=== PATIENT | female | born 1985 | race Caucasian/White ===

== ENCOUNTER 2018-08-15 11:58 | Emergency (ER) | payer OTHER ==
[~2018-08-15] VITALS: Ht 162.6 cm; Wt 50.5 kg
[2018-08-15 12:06] VITALS: Ht 162.6 cm; Wt 50.5 kg
[2018-08-15] MEDS ORDERED: ACET325T33 PO (13:14)
[2018-08-15] MEDS ORDERED: DIAZ5TAB PO (13:14)
[2018-08-15 13:26] VITALS: BP 99/63; PULSE 72; RESP 20
[2018-08-15] MEDS ORDERED: CYCLOBENZAPRINE 10 MG TAB PO ONE (13:30)
--- NOTE | 2018-08-15 13:32 | ERD ---
ER Documentation Chief Complaint Chief Complaint stiff neck with headache x 1 day HPI 33-year-old female presenting with stiff neck and headache x1 day. The patient denies any fever chills body aches. The patient denies any recent travel. The patient states the pain began when she was cooking yesterday. The patient states that the pain did not wake her up in the middle the night. But her neck still feels stiff. She states the pain is worse when she turns her head side to side feels like the back of her neck gets tight. The patient denies any cough, runny nose, sore throat. Patient denies any traumatic injury. 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 ROS All systems reviewed and are negative except as per history of present illness. Medications Home Meds Active Scripts Acetaminophen* (Tylenol*) 325 Mg Tablet, 2 TAB PO Q6 PRN for PAIN AND OR ELEVATED TEMP, #20 TAB Prov:VIVIANE MICHAELS PA-C 08/15/18 Diazepam* (Valium*) 5 Mg Tablet, 5 MG PO Q8, #10 TAB Prov:VIVIANE MICHAELS PA-C 08/15/18 Allergies Allergies: Coded Allergies: No Known Allergy (Unverified , 08/15/18) PMhx/Soc Medical and Surgical Hx: pt denies Medical Hx, pt denies Surgical Hx Hx Alcohol Use: No Hx Substance Use: No Hx Tobacco Use: No Smoking Status: Never smoker FmHx Family History: No diabetes, No coronary disease, No other Physical Exam Vitals Vital Signs Date Temp Pulse Resp B/P (MAP) Pulse Ox O2 O2 Flow FiO2 Time Delivery Rate 08/15/18 98.2 72 20 99/63 (75) 100 Room Air 13:26 08/15/18 99.1 86 18 110/59 99 12:06 (76) Physical Exam Const: No acute distress Head: Atraumatic Eyes: Normal Conjunctiva ENT: Normal External Ears, Nose and Mouth. Neck: Full range of motion. Patient is able to touch chin to chest without difficulty. No meningismus. Patient has notable muscle tension to the right side of her neck muscles on palpation, no bony masses felt, no crepitus. Patient's pain is provoked when she turns her head to left and right side. Resp: Clear to auscultation bilaterally Cardio: Regular rate and rhythm, no murmurs Results 24 hrs Current Medications Medications Dose Sig/Brandi Start Time Status Last (Trade) Ordered Route PRN Stop Time Admin Dose Reason Admin 10 mg ONCE ONCE 08/15/18 DC 08/15/18 Cyclobenzapri PO 13:30 08/15/18 13:24 ne HCl 13:31 (Flexeril) Procedures/MDM Medications given in ER: Cyclobenzaprine Patient tolerated medication well with no adverse reactions. Patient reported improvement in pain. Medical decision makin-year-old female complaining of neck stiffness x1 day. Patient denies fever chills body aches. Patient states she has had no recent travels and no one is sick in the house. Patient is able to touch her chin to her chest. Physical exam of eyes ears nose and throat was unremarkable. Palpation revealed the [place] has some muscle spasm. Patient's pain is provoked when she turns her head from left to right. Patient has no radiculopathy symptoms. Patient denies any allergies to medications. Patient was given cyclobenzaprine 10 mg in the ER and tolerated it well. When reevaluated patient states that symptoms have improved. At the time of discharge I have low suspicion for epiglottitis, fracture, meningitis, infection,CVA, TIA, intracranial hemorrhage, meningitis, encephalitis, CO poisoning, temporal arteritis, benign intracranial hypertension, intracranial mass, glaucoma, preeclampsia, sinusitis, tension headache, migraine headache, cluster headache. The patient was advised that if symptoms worsen or she develops elevated temperature extreme pain in her head blurry vision to return to ER immediately. Patient was advised she should follow-up with her primary care provider within 1 to 2 days regarding this visit. Patient is being sent home with prescription for Valium and acetaminophen for pain and muscle tension. I discussed with the patient's side effects of this medication advised that she cannot drive or operate heavy machinery. At the medications may make you feel drowsy and that she should only take it at night when needed. Patient had no further questions upon discharge and is in agreement the treatment plan Prescription for home: Valium Acetaminophen Discharge: At this time, patient is stable for discharge and outpatient management. I have instructed the patient to follow-up with his\her primary care physician in 1 to 2 days. I have discussed with the patient the possibility of needing to see a specialist for further work-up and imaging studies if symptoms persist. I have instructed the patient to promptly return to the ER for any new or worsening symptoms including increased pain, fever, nausea, vomiting, weakness or LOC. The patient and\or family expressed understanding of and agreement with this plan. All questions were answered. Home care instructions were provided. Disclaimer: Inadvertent spelling and grammatical errors are likely due to EHR\dictation software use and do not reflect on the overall quality of patient care. Also, please note that the electronic time recorded on the note does not necessarily reflect the actual time of the patient encounter. Departure Diagnosis: Primary Impression: Muscle spasm Additional Impression: Headache Headache type: unspecified Headache chronicity pattern: unspecified pattern Intractability: not intractable Qualified Codes: R51 - Headache Condition: Stable Patient Instructions: Muscle Spasm Referrals: [facility] YOU HAVE RECEIVED A MEDICAL SCREENING EXAM AND THE RESULTS INDICATE THAT YOU DO NOT HAVE A CONDITION THAT REQUIRES URGENT TREATMENT IN THE EMERGENCY DEPARTMENT. FURTHER EVALUATION AND TREATMENT OF YOUR CONDITION CAN WAIT UNTIL YOU ARE SEEN IN YOUR DOCTORS OFFICE WITHIN THE NEXT 1-2 DAYS. IT IS YOUR RESPONSIBILITY TO MAKE AN APPOINTMENT FOR FOL-UP CARE. IF YOU HAVE A PRIMARY DOCTOR --you should call your primary doctor and schedule an appointment IF YOU DO NOT HAVE A PRIMARY DOCTOR YOU CAN CALL OUR PHYSICIAN REFERRAL HOTLINE AT IF YOU CAN NOT AFFORD TO SEE A PHYSICIAN YOU CAN CHOSE FROM THE FOLLOWING [facility] [address] [facility]. [facility] [address] [facility]. [facility] [address] [facility] [facility] [address] [facility] [facility] [address] [facility]. [facility]. [address] [facility]. [facility] YOU HAVE RECEIVED A MEDICAL SCREENING EXAM AND THE RESULTS INDICATE THAT YOU DO NOT HAVE A CONDITION THAT REQUIRES URGENT TREATMENT IN THE EMERGENCY DEPARTMENT. FURTHER EVALUATION AND TREATMENT OF YOUR CONDITION CAN WAIT UNTIL YOU ARE SEEN IN YOUR DOCTORS OFFICE WITHIN THE NEXT 1-2 DAYS. IT IS YOUR RESPONSIBILITY TO [facility]. IF YOU HAVE A PRIMARY DOCTOR --you should call your primary doctor and schedule and appointment IF YOU DO NOT HAVE A PRIMARY DOCTOR YOU CAN CALL OUR PHYSICIAN REFERRAL HOTLINE AT . IF YOU CAN NOT AFFORD TO SEE A PHYSICIAN YOU CAN CHOSE FROM THE FOLLOWING ON LICENSE OF [facility] INSTITUTIONS: [facility] [address] [place] [address] [facility] [address] [place] [address] [facility] [address] [place] [address] Additional Instructions: FOLLOW UP WITH YOUR PRIMARY CARE PHYSICIAN TOMORROW.Return to this facility if you are not improving as expected. VIVIANE MICHAELS PA-C Aug 15, 2018 13:32
== END 2018-08-15 12:46 | disposition home or self-care (01) ==
LOC: FTE 11:58
DX: M62.838 Other muscle spasm (principal)
CPT/HCPCS: Z7502; Z7610; 99283